=== PATIENT | male | born 2000 | race Caucasian/White ===

== ENCOUNTER 2022-10-31 23:18 | Emergency (ER) | payer OTHER, SELFPAY ==
--- NOTE | 2022-10-31 00:18 | RAD_ITS ---
INDICATION: pain EXAMINATION/TECHNIQUE: X-RAY - XR Spine Lumbar 2 or 3 Views COMPARISON: None. FINDINGS: VERTEBRAE: No fracture or subluxation. No significant degenerative change. No erosive changes. SOFT TISSUES: Unremarkable. INCLUDED ABDOMEN: Visualized upper abdomen is unremarkable. RAD/Lumbar Spine 2 or 3 Views IMPRESSION: Unremarkable views of the lumbar spine. Electronically Signed: Nima Mcneal DO at 0:42 EDT ,
[2022-10-31 23:19] VITALS: BP 126/75; PULSE 78; RESP 18; TEMP 36.1; O2SAT 98; BMI 21.4
[2022-11-01] MEDS: Ketorolac 30 MG/ML Syringe IM (00:05)
[2022-11-01] MEDS: Orphenadrine 60 MG/2 ML Ampul IM (00:05)
[2022-11-01 00:20] LABS: Squamous Epithelial Cells - UA 0 SEEN /hpf (0-5)
[2022-11-01 00:23] LABS: Color, Urine Yellow (Yellow); Glucose, Dipstick Normal (Normal); Ketone-Dipstick Negative (Negative); Leukocyte Esterase-Dipstick 25 /ul (Negative); Nitrite-Dipstick Negative (Negative); Occult Blood-Urine 10 /ul (Negative); Protein-Dipstick 30 mg/dl (Negative); Specific Gravity, Urine 1.025 (1.002-1.030); Urine Bilirubin Dipstick Negative (Negative); Urine Clarity Clear (Clear); Urine Urobilinogen Normal (Normal)
[2022-11-01 00:37] LABS: Bacteria 2+ /hpf (None Seen); Mucous, Urine 2+ /hpf (<or=2+); Red Blood Cells-Urine 0-5 SEEN /hpf (0-5); White Blood Cells 0-5 SEEN /hpf (0-5)
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
== END 2022-11-01 01:29 | disposition home or self-care (01) ==
PROVIDERS: Emergency Provider Emergency Medicine; Visit Provider Emergency Medicine
DX: S39.012A Strain of muscle, fascia and tendon of lower back, initial encounter (principal); V49.40XA Driver injured in collision with unspecified motor vehicles in traffic accident, initial encounter; Y93.89 Activity, other specified; Y92.39 Other specified sports and athletic area as the place of occurrence of the external cause
CPT/HCPCS: 72100; 81001; 96372; 99282